=== PATIENT | female | born 1990 | race Caucasian/White ===

== ENCOUNTER 2017-03-02 19:40 | Inpatient (IN) | payer MEDICAID ==
[~2017-03-02] VITALS: Ht 157.5 cm; Wt 74.1 kg
[2017-03-02 21:00] LABS: BASOPHIL % 0.6 % (0-2); PLATELET COUNT 382 x10^3mcL (130-400)
[2017-03-02 21:05] LABS: RED CELL DISTRIBUTION WIDTH 15.5 % (11.5-14.5)
[2017-03-02 21:10] LABS: CALCIUM 9.3 mg/dL (8.5-10.1); CARBON DIOXIDE 27.7 mmol/L (21-32); CHLORIDE SERUM 105 mmol/L (98-107); CREATININE SERUM 0.6 mg/dL (0.6-1.0); GFR1 > 60 mL/min; GLUCOSE SERUM 92 mg/dL (74-106); POTASSIUM SERUM 3.9 mmol/L (3.5-5.1); SODIUM SERUM 140 mmol/L (136-145)
[2017-03-02 21:14] LABS: ALKALINE PHOSPHATASE 188 U/L (46-116); ALT/SGPT 41 U/L (14-59); AST/SGOT 35 U/L (15-37); BILIRUBIN TOTAL 1.65 mg/dL (0.20-1.00); LIPASE 170 IU/L (73-393); TOTAL PROTEIN, SERUM 7.4 g/dL (6.4-8.2)
[2017-03-02 22:52] LABS: T3 TOTAL 1.23 ng/mL
[2017-03-02 22:54] LABS: FREE T4 1.32 ng/dL (0.76-1.46); FREE THYROXINE INDEX 3.3 ug/dL (1.4-4.5); T4(THYROXINE) 9.5 ug/dL (4.7-13.3)
[2017-03-02 23:02] LABS: UA SPECIFIC GRAVITY 1.015 (1.005-1.035); microscopic required? YES; urine erythrocyte 1+ (NEGATIVE)
[2017-03-02 23:10] LABS: AMPHETAMINE QUAL UR NONE DETECTED (NEG <=1000)
[2017-03-02 23:10] LABS: MAGNESIUM 1.9 mg/dL (1.8-2.4); PHOSPHOROUS 2.7 mg/dL (2.5-4.9)
[2017-03-02 23:11] LABS: CHOLESTEROL/HDL RATIO 2.3
[2017-03-02 23:57] VITALS: Ht 157.5 cm; Wt 74.1 kg
[2017-03-03 05:36] VITALS: BP 106/66
[2017-03-03 07:36] LABS: BASOPHIL % 0.3 % (0-2); PLATELET COUNT 312 x10^3mcL (130-400)
[2017-03-03 07:37] LABS: RED CELL DISTRIBUTION WIDTH 15.3 % (11.5-14.5)
[2017-03-03 10:00] VITALS: BP 103/63
[2017-03-03 14:00] VITALS: BP 116/67
[2017-03-03 21:10] VITALS: BP 119/64
[2017-03-04 05:23] VITALS: BP 105/59
[2017-03-04 05:35] LABS: BASOPHIL % 0.4 % (0-2); PLATELET COUNT 296 x10^3mcL (130-400)
[2017-03-04 05:48] LABS: CALCIUM 8.6 mg/dL (8.5-10.1); CARBON DIOXIDE 26.8 mmol/L (21-32); CHLORIDE SERUM 107 mmol/L (98-107); CREATININE SERUM 0.5 mg/dL (0.6-1.0); GFR1 > 60 mL/min; GLUCOSE SERUM 80 mg/dL (74-106); POTASSIUM SERUM 3.6 mmol/L (3.5-5.1); SODIUM SERUM 140 mmol/L (136-145)
[2017-03-04 06:13] LABS: BILIRUBIN DIRECT 1.47 mg/dL (0.0-0.2); BILIRUBIN TOTAL 1.9 mg/dL (0.20-1.00)
[2017-03-04 06:16] LABS: ALBUMIN 2.2 g/dL (3.4-5.0); TOTAL PROTEIN, SERUM 5.8 g/dL (6.4-8.2)
[2017-03-04 06:46] LABS: RED CELL DISTRIBUTION WIDTH 15.2 % (11.5-14.5)
[2017-03-04 13:12] VITALS: BP 115/75
[2017-03-04 16:55] VITALS: BP 122/70
[2017-03-04 20:31] VITALS: BP 118/73
[2017-03-05 05:45] VITALS: BP 126/83
[2017-03-05 06:05] LABS: BASOPHIL % 0.1 % (0-2); PLATELET COUNT 259 x10^3mcL (130-400)
[2017-03-05 06:12] LABS: RED CELL DISTRIBUTION WIDTH 15.1 % (11.5-14.5)
[2017-03-05 06:13] LABS: CALCIUM 8.9 mg/dL (8.5-10.1); CARBON DIOXIDE 23.2 mmol/L (21-32); CHLORIDE SERUM 106 mmol/L (98-107); CREATININE SERUM 0.5 mg/dL (0.6-1.0); GFR1 > 60 mL/min; GLUCOSE SERUM 95 mg/dL (74-106); POTASSIUM SERUM 3.6 mmol/L (3.5-5.1); SODIUM SERUM 138 mmol/L (136-145)
[2017-03-05 08:41] VITALS: BP 123/64
[2017-03-05] MEDS ORDERED: NORCO1 TA2 PO (13:11)
[2017-03-05] MEDS ORDERED: COL100 PO (13:14)
[2017-03-05 16:18] VITALS: BP 123/64
== END 2017-03-05 17:50 | disposition home or self-care (01) | DRG 710 ==
LOC: ED 19:40 → MU 21:51 → DU 21:51 → MU 03-04 11:07
PROVIDERS: Emergency Medicine; Family Medicine Sports Medicine; Internal Medicine Gastroenterology; Surgery; ADMIT Family Medicine
PROC: 0FT44ZZ Resection of Gallbladder, Percutaneous Endoscopic Approach (ICD-10-PCS; principal; 2017-03-04 09:30)
DX: A41.9 Sepsis, unspecified organism (principal); N17.0 Acute kidney failure with tubular necrosis; E43 Unspecified severe protein-calorie malnutrition; N39.0 Urinary tract infection, site not specified; K80.00 Calculus of gallbladder with acute cholecystitis without obstruction; R65.20 Severe sepsis without septic shock; K76.0 Fatty (change of) liver, not elsewhere classified; Z68.30 Body mass index [BMI] 30.0-30.9, adult
CPT/HCPCS: 83880; 84439; 94150; J0330; J0696; J1885; J2250; J2270; J2405; J2704; J2710; J3010; J3490; J7030; J7120; Q0092

== ENCOUNTER 2019-02-12 09:37 | Emergency (ER) | payer MEDICAID ==
[~2019-02-12] VITALS: Ht 157.5 cm; Wt 83.9 kg
[~2019-02-12 09:37] MED LIST: COL100 PO; NORCO1 TA2 PO
[2019-02-12 09:40] VITALS: BP 126/76; Ht 157.5 cm; Wt 83.9 kg
== END 2019-02-12 10:25 | disposition home or self-care (01) ==
LOC: ED 09:37
DX: L50.0 Allergic urticaria (principal)